=== PATIENT | male | born 1985 | race Caucasian/White ===

== ENCOUNTER 2022-07-02 09:25 | Outpatient (CLI) | payer OTHER ==
[2022-07-02 10:18] VITALS: BP 138/90
--- NOTE | 2022-07-02 10:18 | SLEEP CARE CONSULTATION ---
Information from patient questionnaire entered by Zehra Contreras. I have reviewed and concur with the information entered by Zehra Contreras. This document represents the service I personally performed and the decisions made by me, Alvin Resendiz MD, [facility]. History of Present Illness Service Date and Time: 07/02/2022924 Reason for Visit: New patient Chief Complaint: reports: Unrefreshed sleep, Snoring, Observed pauses in breathing, Fatigue Date of Onset: 6YRS Usual bedtime: 11PM-12AM Time it takes to fall asleep: 5-10MIN Snores at night: Yes Observed to quit breathing while asleep: Yes Sleeps alone due to snoring: No Number of times waking at night: 0-1 Reasons for waking at night: reports: Snoring, Bathroom Toss, Turn, or Twitch while sleeping: Yes Recalls having dreams: No Usually gets out of bed at: 430-5AM Feels refreshed in the morning: No Morning headache: Yes (RESOLVES 1-2HRS AFTER WAIKING) Sleepy or fatigued during the day: Yes Ever fallen asleep while driving: No Takes day naps: Yes Dreams during day naps: No Prior sleep studies: Yes Year and Where: 2019 [facility] Additional HPI information: I had the pleasure of seeing Mr. Yadav today regarding the possibility of him having a sleep disorder. As you know, he is a 36-year-old gentleman who complains of loud snore, observed apneas, unrefreshed sleep, and persistent fatigue for the past 6 years. He had a home sleep apnea test (HSAT) and in- laboratory polysomnography at [facility] in [place] 3 years ago. He was told that he had sleep apnea but not severe enough to require CPAP therapy. He was advised to not sleep on his back. The patient tells me that he normally goes to bed around 11 pm - midnight, and it takes him approximately 5 - 10 minutes to fall asleep. He has been told that he snores loudly and irregularly at night. He has also been observed to stop breathing in his sleep. He can recall waking up on the average of 0 - 1 times during the night. Most of the time he wakes up because of having to use the bathroom. He has awakened occasionally because of his own snoring, choking, and having to gasp for air. There is a lot of tossing and turning in his sleep. No somniloquy (sleep talking) or somnambulism (sleep walking). Generally, there is no recollection of dreams. In the morning he usually gets up out of the bed around 4:30 - 5 a.m. not feeling refreshed nor rested. He usually has a morning headache that can last from an hour to all day. During the day he complains of feeling sleepy and fatigued. His score on [place] Sleepiness Scale is 16 out of 24. He has fallen asleep while driving and has gone out of the carmen. He usually takes naps during the day. Upon falling asleep during the day he admits to denies having vivid dreams. He has never had sleep paralysis, experienced cataplexy or symptoms of restless leg syndrome. He reports having impaired concentration dur ing the day. - Parasomnia Symptoms Ever been unable to move upon waking from sleep: No Walks in sleep: No Talks in sleep: No Ever acted out dreams in sleep: No Ever felt weak in the knees when startled or emotional: No Bothered by creepy, crawly, restless sensations in legs: No Problems with memory or concentration: Yes Subjective Initial [place] Sleepiness Scale score: 16 (06/29/22) Social History The patient's occupation is a AM. Patient is and lives in [place]. Have you smoked in the past 12 months: No Alcohol use: Yes Alcohol amount and frequency: 1-2 DRINKS EVERY 6-12 MONTHS Caffeine use: Yes Caffeine amount and frequency: 400-600MG EVERYDAY Family History Family history of sleep disordered breathing: Yes Family Hx Sleep Apnea: Mother: Snoring, Sleep apnea - Untreated, Father: Snoring, Sleep apnea - Untreated Allergies and Home Medications Known drug allergies: No Drug allergies reviewed: Yes Home medication list reviewed: Yes (none) Review of Systems Weight gain over past 5 years: 2 Weight loss over past 5 years: 2 Cardiovascular: reports: chest pain Respiratory: denies: shortness of breath, wheeze, sputum production, chronic cough, other Gastrointestinal: reports: heartburn Urinary: denies: incontinence, frequency, urgency, impotence, other Neurological: reports: headaches Psychiatric: denies: Attention Deficit Hyperactivity, anxiety, depression, mood disorder, claustrophobia, other Ear/Nose/Throat: reports: nasal congestion, sinus problems, wisdom teeth removed Endocrine: reports: sluggishness Musculoskeletal: denies: joint pain, neck pain, back pain, joint swelling, muscle pain or cramping, mobility problems, other Immunologic: reports: sneezing Physical Exam Vital signs obtained and entered by: ZEHRA Pantoja MA Blood Pressure: 138/90 (LEFT ARM) Cuff size: regular Heart Rate: 72 O2 Saturation: 97 Height: 5 ft 6 in Weight: 185 lb 6.4 oz Body Mass Index: 29.9 BMI Classification: Overweight Neck circumference: 16.25 Mood/affect: Normal HEENT: No craniofacial malformation Nostrils: partially obstructed (right side) Turbinates: normal Septum: midline Mouth and throat: narrow oropharynx Soft palate: long Hard palate: normal Uvula: normal Uvula visualization: 25% Mallampati Class III Tongue: normal in size Tonsils: absent bilaterally Chin and jaw: normal size and position Neck: normal w/o lymphadenopathy or thyromegaly Heart: regular rate and rhythm Lungs: clear bilaterally Extremities: no edema or clubbing Neurologic: intact Impression and Plan IMPRESSION: 1. Obstructive Sleep Apnea-Hypopnea Syndrome, as suggested by history of loud and irregular snoring, observed cessation of breath while asleep, unrefreshed sleep, morning headache, cognitive impairment, and daytime hypersomnolence. Narrow oropharynx and obesity are common predisposing factors for obstructive sleep apnea-hypopnea syndrome. I recommend proceeding to polysomnography to confirm the diagnosis and to assess severity. If he has significant sleep disordered breathing, a manual CPAP titration study will also be performed to find the optimal treatment pressure. I informed the patient of what the sleep studies involve and after some discussion, he agreed to proceed. Plan: 1. Schedule an in-laboratory polysomnography. The patient will be encouraged to sleep on his back as much as possible during the sleep study. 2. Avoid long distance driving or when feeling sleepy. 3. Avoid alcohol, sedative and muscle relaxant around bedtime. 4. Return for follow up after the sleep study. Counseling Topics: Weight control Follow up with Sleep Care in: 1-2 months Plan: in-lab PSG Visit Type: In Office Time Spent with Patient (minutes): 15 Provider Statement: I spent 100% of the Face to Face Visit with the patient with greater than 50% spent counseling the patient and coordination of care.
== END 2022-07-02 09:26 | disposition home or self-care (01) ==
LOC: SC 09:25
PROVIDERS: ATTEND Internal Medicine Pulmonary Disease
DX: R06.83 Snoring (principal); G47.8 Other sleep disorders; R06.81 Apnea, not elsewhere classified; R51.9 Headache, unspecified; G47.10 Hypersomnia, unspecified; E66.3 Overweight; Z68.29 Body mass index [BMI] 29.0-29.9, adult
CPT/HCPCS: 99202; 99212

== ENCOUNTER 2022-07-26 20:35 | Outpatient (CLI) | payer OTHER | END 2022-07-26 20:36 | disposition home or self-care (01) | LOC: SC 20:35 | PROVIDERS: ATTEND Internal Medicine Pulmonary Disease | DX: G47.33 Obstructive sleep apnea (adult) (pediatric) (principal) | CPT/HCPCS: 95810 ==